=== PATIENT | female | born 2000 | race Caucasian/White ===

== ENCOUNTER 2021-10-14 17:07 | Outpatient (CLI) | payer SELFPAY ==
[2021-10-14 18:47] LABS: HEMOGLOBIN 11.7 gm/dl (12.3-15.3); WHITE BLOOD COUNT 7.4 K/UL (4.5-11.0)
[2021-10-15] MEDS ORDERED: IBUPROFEN800 MG PO (18:50)
[2021-10-15] MEDS ORDERED: COLACE 100MG C100 MG PO (18:50)
== END 2021-10-14 18:48 | disposition home or self-care (01) ==
LOC: GENOP 17:07 → OB 17:26 → GENOP 17:26 → OB 18:48 → GENOP 18:48
PROVIDERS: Obstetrics & Gynecology
DX: O47.1 False labor at or after 37 completed weeks of gestation (principal); O36.63X0 Maternal care for excessive fetal growth, third trimester, not applicable or unspecified; Z3A.39 39 weeks gestation of pregnancy; Z28.310 Unvaccinated for COVID-19
CPT/HCPCS: 81001; 85025; U0002

== ENCOUNTER 2021-10-15 05:30 | Inpatient (IN) | payer SELFPAY ==
[~2021-10-15] VITALS: Ht 165.1 cm; Wt 78.9 kg
[2021-10-15] MEDS ORDERED: COLACE 100MG C100 MG PO (18:50)
[2021-10-15] MEDS ORDERED: IBUPROFEN800 MG PO (18:50)
[2021-10-16 05:10] LABS: HEMOGLOBIN 12.3 gm/dl (12.3-15.3)
== END 2021-10-16 20:00 | disposition home or self-care (01) | DRG 807 ==
LOC: OB 05:30
PROVIDERS: ADMIT Obstetrics & Gynecology
PROC: 10E0XZZ Delivery of Products of Conception, External Approach (ICD-10-PCS; principal; 2021-10-15)
PROC: 10907ZC Drainage of Amniotic Fluid, Therapeutic from Products of Conception, Via Natural or Artificial Opening (ICD-10-PCS; 2021-10-15)
PROC: 3E033VJ Introduction of Other Hormone into Peripheral Vein, Percutaneous Approach (ICD-10-PCS; 2021-10-15)
PROC: 0HQ9XZZ Repair Perineum Skin, External Approach (ICD-10-PCS; 2021-10-15)
PROC: 4A1HXCZ Monitoring of Products of Conception, Cardiac Rate, External Approach (ICD-10-PCS; 2021-10-15)
DX: O99.334 Smoking (tobacco) complicating childbirth (principal); Z37.0 Single live birth; F17.210 Nicotine dependence, cigarettes, uncomplicated; O70.0 First degree perineal laceration during delivery; Z3A.39 39 weeks gestation of pregnancy; Z28.310 Unvaccinated for COVID-19; Z20.822 Contact with and (suspected) exposure to COVID-19
CPT/HCPCS: 36415; 85014; 85018; J0595; J2590; J7120